=== PATIENT | female | born 1970 | race Asian ===

== ENCOUNTER 2022-02-07 15:59 | Emergency (ER) | payer BC, SELFPAY ==
[2022-02-07 16:06] VITALS: BP 103/60; PULSE 69; RESP 20; TEMP 36.6; O2SAT 96
--- NOTE | 2022-02-07 16:06 | ED.NAVMDI ---
HPI - Nausea/Vomiting/Diarrhea General Chief complaint: Nausea/Vomiting/Diarrhea Stated complaint: nausea diahrrea Time Seen by Provider: 02/07/22 16:06 Source: patient and RN notes reviewed History of Present Illness HPI Narrative: Patient is a 51-year-old female who presents the urgent care with complaints of nausea, vomiting and diarrhea. Patient states she is also had a lot of abdominal cramping intermittently. Patient's son is at the bedside and translating for her considering she has limited Uzbek. Patient is a kidney transplant patient and had her transplant in 2007 due to kidney failure after high blood pressure. Patient was seen at [facility] on February 02 and was given Zofran. She states that she did have a CT scan of the abdomen and they did not have any findings or cause for her nausea, vomiting or diarrhea. Patient son states that he had the same problem a couple weeks ago and it resolved fairly quickly with [id number] medication. Patient states she is concerned with taking [id number] medication due to her kidney transplant. Patient has not followed up with her kidney transplant doctor or her PCP regarding her current issue. Patient states her last episode of vomiting was Saturday when the symptoms started. States that she has intermittent abdominal cramping with diarrhea. Reports of 8 loose stools today. Denies of any blood in the urine. No other complaints. No acute distress noted. Patient aware of the plan of care. Some parts of this dictation were generated by voice recognition software and may contain typographical and/or grammatical inaccuracies. Related Data Home Medications Medication Instructions Recorded Confirmed metoprolol tartrate 25 mg tablet 25 mg PO BID 02/07/22 02/07/22 mycophenolate mofetil 500 mg tablet 500 mg PO DIRECTED 02/07/22 02/07/22 omeprazole 20 mg capsule,delayed 20 mg PO DAILY 02/07/22 02/07/22 release ondansetron 8 mg disintegrating 8 mg PO DIRECTED 02/07/22 02/07/22 tablet prednisone 5 mg tablet 5 mg PO DAILY 02/07/22 02/07/22 riboflavin (vitamin B2) 100 mg 1 tablet PO DAILY 02/07/22 02/07/22 tablet (Vitamin B-2) tacrolimus 1 mg capsule, 1 mg PO DAILY 02/07/22 02/07/22 immediate-release Allergies Allergy/AdvReac Type Severity Reaction Status Date / Time No Known Allergies Allergy Verified 02/07/22 16:12 Review of Systems Review of Systems: CONSTITUTIONAL: Denies fever, chills, or sweats. EYES: Denies visual changes, redness, or discharge. ENT: Denies rhinorrhea, congestion, sore throat, or otalgia. CARDIOVASCULAR: Denies chest pain, palpitations, or edema. RESPIRATORY: Denies cough or dyspnea. GASTROINTESTINAL: Reports of intermittent abdominal cramping with nausea, vomiting and diarrhea GENITOURINARY: Denies dysuria or hematuria. SKIN: Denies rash or itching. MUSCULOSKELETAL: Denies back pain, joint pain, or myalgia. NEUROLOGIC: Denies headache, numbness, or weakness. \ All other systems reviewed are negative, except as documented in HPI. PMFSH Comments At the time of my signature, I reviewed and agree with the nursing past medical, surgical, social, and family history. There is no relevant family history pertinent to the patient complaint. Exam Narrative: GENERAL: This is a well-nourished, well-developed patient, in no apparent distress. HEAD: normocephalic, atraumatic. EYES: PERRL. Sclera clear/white. Vision is grossly intact. EARS: External ears normal NOSE: External nose normal with no obvious nasal discharge, nares without redness, no rhinorrhea. THROAT: Mucous membranes moist NECK: Neck supple CARDIOVASCULAR: Regular rate and rhythm without murmurs, gallops, or rubs. RESPIRATORY: Clear to auscultation. Breath sounds equal bilaterally. No wheezes, rales, or rhonchi. GASTROINTESTINAL: Abdomen soft, mild to moderate substernal tenderness and upper right quadrant. Negative obturator. nondistended. Bowel sounds are hyperactive. SKIN
== END 2022-02-07 16:49 | disposition home or self-care (01) ==
PROVIDERS: Emergency Provider Nurse Practitioner Family; PCP Nurse Practitioner Family
DX: R11.2 Nausea with vomiting, unspecified (principal); R19.7 Diarrhea, unspecified; I10 Essential (primary) hypertension
CPT/HCPCS: 99211; G0463

== ENCOUNTER 2023-09-18 16:49 | Emergency (ER) | payer BC, SELFPAY ==
[2023-09-18 16:57] VITALS: BP 120/73; PULSE 72; RESP 16; TEMP 36.2; O2SAT 99
--- NOTE | 2023-09-18 17:05 | ED.GENADULT ---
HPI - General Adult General Chief complaint: Nausea/Vomiting/Diarrhea Stated complaint: diarrhea/nausea Source: patient, RN notes reviewed and old records reviewed Mode of arrival: ambulatory Limitations: no limitations History of Present Illness HPI narrative: 53-year-old female presents to [facility] with complaints of abdominal pain, nausea, diarrhea this started last p.m.. Patient states he has vomited 10 times today. Patient denies any other symptoms. Related Data Home Medications Medication Instructions Recorded Confirmed metoprolol tartrate 25 mg tablet 25 mg PO BID 02/07/22 09/18/23 mycophenolate mofetil 500 mg tablet 500 mg PO DIRECTED 02/07/22 09/18/23 omeprazole 20 mg capsule,delayed 20 mg PO DAILY 02/07/22 09/18/23 release prednisone 5 mg tablet 5 mg PO DAILY 02/07/22 09/18/23 riboflavin (vitamin B2) 100 mg 1 tablet PO DAILY 02/07/22 09/18/23 tablet (Vitamin B-2) tacrolimus 1 mg capsule, 1 mg PO DAILY 02/07/22 09/18/23 immediate-release Allergies Allergy/AdvReac Type Severity Reaction Status Date / Time No Known Allergies Allergy Verified 09/18/23 17:31 Review of Systems Constitutional: Constitutional: Reports no additional constitutional complaints, Denies body ache(s), Denies chills, Denies fatigue, Denies fever(s) and Denies headache(s) Eyes: Eyes: Reports no additional eye complaints and Denies blurry vision ENT: Reports system reviewed and no additional complaints, except as documented, Denies vertigo, Denies dizziness, Denies ear discharge, Denies otalgia, Denies facial pain, Denies headache(s), Denies nasal congestion, Denies nasal discharge, Denies sinus pain, Denies sinus pressure and Denies sore throat Cardiovascular: Cardiovascular: Reports no additional cardiovascular complaints, Denies chest pain, Denies chest pain at rest, Denies rapid heart rate and Denies dyspnea Respiratory: Respiratory: Reports no additional respiratory complaints, Denies chest congestion, Denies cough, Denies pain on inspiration, Denies pain with cough and Denies dyspnea Gastrointestinal: Gastrointestinal: Reports abdominal pain, Reports diarrhea, Reports nausea and Denies vomiting Integumentary/Breasts: Skin/Breast: Denies rash Neurologic: Reports system reviewed and no additional complaints, except as documented, Denies vertigo, Denies dizziness and Denies headache(s) Endocrine: Endocrine: Denies fatigue PMFSH Comments At the time of my signature, I reviewed and agree with the nursing past medical, surgical, social, and family history. There is no relevant family history pertinent to the patient complaint. Exam Const: General: cooperative, healthy appearing, no acute distress and well nourished Nutritional Appearance: well nourished Orientation/consciousness: patient oriented x3 Limitations: no limitations HENMT: Head: normal to inspection and normocephalic Ears: external ears normal, TM's normal bilaterally, mastoids normal and Abnormal EAC present Face/Nose/Sinus: normal facial exam Face and sinus: normal facial exam Mouth: Yes Normal oral and palatal mucosa present, Yes oropharynx normal and Yes moist mucous membranes Throat: tonsils normal, uvula midline and no uvular edema Eyes: General: appearance normal, both eyes and all related structures Sclera: sclerae normal Pupils: Equal, round and reactive pupils present Resp: Effort & Inspection: normal respiratory effort, able to speak in complete sentences, no audible wheezes, no cough, no respiratory distress and no retractions Auscultation: clear to auscultation bilaterally, no crackles, no rales, no rhonchi and no wheezes Cardio: Rate: regular rate Rhythm: regular rhythm GI: GI Palp: Yes abdominal tenderness, Yes Soft to palpation, No Firmness to palpation present (GI), No Tenderness to palpation present (GI), No Guarding due to palpation present (GI), No Rigid due to palpation and No No hepatosplenomegaly present Skin: General skin exam:
[2023-09-18] MEDS: ONDANSETRON HCL ODT 4 MG TABLET PO (17:27)
== END 2023-09-18 17:50 | disposition home or self-care (01) ==
PROVIDERS: Emergency Provider Registered Nurse; PCP Nurse Practitioner Family
DX: A08.4 Viral intestinal infection, unspecified (principal); Z20.822 Contact with and (suspected) exposure to COVID-19; I10 Essential (primary) hypertension
CPT/HCPCS: 87426; 87804; 99213; A9270; G0463

== ENCOUNTER 2024-07-08 18:16 | Emergency (ER) | payer BC, SELFPAY ==
[2024-07-08 18:21] VITALS: BP 95/54; PULSE 87; RESP 16; TEMP 36.6; O2SAT 98
[2024-07-08 18:40] LABS: EDUAAPPEAR Clear; EDUABILI Negative (Negative); EDUABLOOD 2+ (Negative); EDUACOLOR1 Bright; EDUAGLUCOSE Negative (Negative); EDUAKETONE Negative (Negative); EDUALEUKO 1+ (Negative); EDUANITRATE Negative (Negative); EDUAPROTEIN 2+ (Negative); EDUAUROBILI 0.2
--- NOTE | 2024-07-08 18:43 | ED.GENADULT ---
HPI - General Adult General Chief complaint: Abdominal Pain Stated complaint: Abdo pain/bloated/weak Time Seen by Provider: 07/08/24 18:44 Source: patient and RN notes reviewed Mode of arrival: ambulatory Limitations: no limitations History of Present Illness HPI narrative: 53-year-old female with history of kidney transplant presents with concern of for stomachache that started last night, abdominal discomfort, general malaise and nausea. Denies vomiting or diarrhea. She denies fever. She reports left flank pain. She denies dysuria, frequency, urgency, hematuria. MD complaint: Stomach ache Related Data Home Medications Medication Instructions Recorded Confirmed metoprolol tartrate 25 mg tablet 25 mg PO BID 02/07/22 09/18/23 mycophenolate mofetil 500 mg tablet 500 mg PO DIRECTED 02/07/22 09/18/23 omeprazole 20 mg capsule,delayed 20 mg PO DAILY 02/07/22 09/18/23 release prednisone 5 mg tablet 5 mg PO DAILY 02/07/22 09/18/23 tacrolimus 1 mg capsule, 2 mg PO BID 02/07/22 09/18/23 immediate-release losartan 25 mg tablet 25 mg PO DAILY 07/08/24 07/08/24 Allergies Allergy/AdvReac Type Severity Reaction Status Date / Time No Known Allergies Allergy Verified 09/18/23 17:31 Review of Systems Review of Systems: CONSTITUTIONAL: Denies malaise, chills, sweats, or fever. CARDIOVASCULAR: Denies chest pain, palpitations, or edema. RESPIRATORY: Denies cough or dyspnea. GASTROINTESTINAL: Reports abdominal discomfort, nausea. Denies vomiting, diarrhea GENITOURINARY: Denies dysuria, frequency, urgency, suprapubic pressure. Denies flank pain or hematuria. SKIN: Denies rash or itching. MUSCULOSKELETAL: Reports right flank pain All systems reviewed & are unremarkable except as noted in HPI and below PMFSH Comments At time of signature, agree with nursing past medical, surgical, social and family history. There is no relevant family history pertinent to the presenting complaint Exam Narrative: GENERAL: Well-appearing, well-nourished, and in no acute distress. HEAD: Normocephalic. EYES: PERRLA, conjunctivae clear. NECK: Supple. No lymphadenopathy CHEST: Clear to auscultation. No respiratory distress. HEART: Regular rate and rhythm. ABDOMEN: Soft, mid abdomen tenderness, nondistended, normal active bowel sounds, no palpable or pulsatile masses, no guarding. Right CVA tenderness SKIN: Warm, dry, no rash. NEURO: Alert and oriented x3. PSYCH: Normal mood and affect Course Course Emergency Course: My a advised patient of her limited diagnostic capability at [facility] and recommended she go to the emergency room for further evaluation. Patient an her son preferred an echo to the emergency room at this time. I will prescribe an antibiotic but advised to symptoms do not improved in 24-36 hours they need to go to the emergency room Anticipatory guidance given. Patient agrees to follow-up as directed and is aware of reasons to seek care at the emergency department. Portions of this record may have been created with voice recognition software Level of Care: [facility] Visit Vital Signs Vital signs: Vital Signs Temperature 97.8 F 07/08/24 18:21 Pulse Rate 87 07/08/24 18:21 Respiratory Rate 16 07/08/24 18:21 Blood Pressure 95/54 L 07/08/24 18:21 Pulse Oximetry 98 07/08/24 18:21 Oxygen Delivery Room Air 07/08/24 18:21 Temperature 97.8 F 07/08/24 18:21 Pulse Rate 87 07/08/24 18:21 Respiratory Rate 16 07/08/24 18:21 Blood Pressure 95/54 L 07/08/24 18:21 Pulse Oximetry 98 07/08/24 18:21 Oxygen Delivery Room Air 07/08/24 18:21 Reviewed. Medical Decision Making Differential Diagnosis Differential Diagnosis: Patient is nontoxic appearing and in no acute distress Vital Signs Vital Signs: Vital Signs Temperature 97.8 F 07/08/24 18:21 Pulse Rate 87 07/08/24 18:21 Respiratory Rate 16 07/08/24 18:21 Blood Pressure 95/54 L 07/08/24 18:21 Pulse Oximetry 98 07/08/24 18:21 Oxygen Delivery Room Air 07/08/24 18:21 Temperature 97.8 F 07/08/24 18:21 Pulse Rate 87 07/08/24 18:21 Respiratory Rate 16 07/08/24 18:21 Blood Pressure 95/54 L 07/08/24 18:21 Pulse Oximetry 98 07/08/24 18:21 Oxygen Delivery Room Air 07/08/24 18:21 Lab Data Labs: Lab Results 12/04/24 Range/Units 18:38 POC Urine Color Bright POC Urine Clarity Clear POC Urine pH 6.0 POC Ur Specif [place] 1.020 POC Urine Protein 2+ (Negative) POC Ur Glucose (UA) Negative (Negative) POC Urine Ketones Negative (Negative) POC Urine Blood 2+ (Negative) POC Urine Nitrite Negative (Negative) POC Urine Bilirubin Negative (Negative) POC Urine Urobilinogen 0.2 POC U Leukocyte Esteras 1+ (Negative) Critical Care Time Critical Care Time Critical Care Time: No Discharge Plan Discharge Clinical Impression: Urinary tract infection Patient Disposition: Home, Self-Care Condition: Stable Instructions: Antibiotic Form, Urinary Tract Infection in Women (ED) Additional Instructions: We will send a urine culture to the lab; if the culture identifies an organism that the prescribed antibiotic will not treat, you will receive a phone call from an urgent care staff member and an appropriate antibiotic will be prescribed. -Your symptoms should begin to improve within a day of starting antibiotics. But you should finish all the antibiotic pills you get. Otherwise your infection might come back. -Also recommend: increase water intake. Tylenol/ibuprofen as needed for pain or fever -Follow-up with your primary care provider for urine recheck. Seek ER visit if your symptoms do not improve or condition worsens with high fever, nausea, vomiting and severe back pain. Prescriptions: New amoxicillin-pot clavulanate 875-125 mg tablet 1 tablet PO Q12H 10 Days Qty: 20 0RF No Action prednisone 5 mg tablet 5 mg PO DAILY mycophenolate mofetil 500 mg tablet 500 mg PO DIRECTED omeprazole 20 mg capsule,delayed release(DR/EC) 20 mg PO DAILY tacrolimus 1 mg capsule 2 mg PO BID metoprolol tartrate 25 mg tablet 25 mg PO BID losartan 25 mg tablet 25 mg PO DAILY Follow-up/Referrals: Villa,Emmie Martin APN [Primary Care Provider] - Time of Disposition: 18:53
== END 2024-07-08 18:57 | disposition home or self-care (01) ==
PROVIDERS: Emergency Provider Nurse Practitioner; PCP Nurse Practitioner Family
DX: N39.0 Urinary tract infection, site not specified (principal); Z94.0 Kidney transplant status
CPT/HCPCS: 81003; 87086; 99213; G0463

== ENCOUNTER 2024-08-17 09:14 | Emergency (ER) | payer BC, SELFPAY ==
[2024-08-17 09:18] VITALS: BP 91/44; PULSE 106; RESP 20; TEMP 36.5; O2SAT 97
--- NOTE | 2024-08-17 09:30 | ED_ITS ---
HPI - Abdominal Pain General Chief Complaint: Fever Stated Complaint: fever/weak/can't keep food down/headache Time Seen by Provider: 08/17/24 09:30 Source: patient and RN notes reviewed Mode of arrival: ambulatory Limitations: no limitations History of Present Illness HPI narrative: 53-year-old female with hx kidney transplant (2007) presented for complaint of vomiting, fatigue/weakness, back pain, shortness of breath, and headache. Onset 2 days. Says she cannot keep food/fluids down. Also reports intermittent fever for over 3 weeks. Had a cough at the onset which is better. Denies abdominal pain, diarrhea, or urinary complaints. Related Data Home Medications ?Medication ?Instructions ?Recorded ?Confirmed ?Last Taken ?Type metoprolol tartrate 25 mg tablet 25 mg PO BID 02/07/22 09/18/23 Unknown History mycophenolate mofetil 500 mg tablet 500 mg PO DIRECTED 02/07/22 09/18/23 Unknown History omeprazole 20 mg capsule,delayed 20 mg PO DAILY 02/07/22 09/18/23 Unknown History release prednisone 5 mg tablet 5 mg PO DAILY 02/07/22 09/18/23 Unknown History tacrolimus 1 mg capsule, 2 mg PO BID 02/07/22 09/18/23 Unknown History immediate-release losartan 25 mg tablet 25 mg PO DAILY 07/08/24 07/08/24 Unknown History aspirin 81 mg capsule 81 mg PO DAILY 08/17/24 Unknown History Allergies Allergy/AdvReac Type Severity Reaction Status Date / Time No Known Allergies Allergy Verified 08/17/24 09:35 Review of Systems Review of Systems: ROS per HPI All systems reviewed & are unremarkable except as noted in HPI and below PMFSH Surgical History Surgical History (Updated 08/17/24 @ 09:46 by Corinna Rubio, [employer]) Renal transplant recipient Comments At time of signature, I have reviewed and agree with nursing past medical, surgical, social and family history unless otherwise noted. Please see nursing chart for further information. There is no relevant family history pertinent to the presenting complaint Exam Narrative: GENERAL: Well-appearing EYES: EOMI. Conjunctivae normal. ENT: Mucous membranes pink and moist. CHEST: No respiratory distress. Clear to auscultation. HEART: Regular rate and rhythm. No murmur appreciated. Normal peripheral pulses. ABDOMEN: abd soft, nondistended, hypoactive active bowel sounds. Generalized Tender abdomen, Bilateral CVA tenderness and upper back tenderness. No guarding, rebound tenderness, asymmetry SKIN: Warm, dry, no rash. Capillary refill normal. Normal skin turgor. NEURO: No focal deficits. Alert and oriented x3. PSYCH: Normal affect. Course Course Emergency Course: Patient is aware of diagnosis, understands and agrees to treatment plan. Anticipatory guidance given. Patient agrees to follow-up as directed and is aware of reasons to seek care at the emergency department. Portions of this record may have been created with voice recognition software Level of Care: Express Care Visit Vital Signs Vital signs: Vital Signs Temperature 97.7 F 08/17/24 09:18 Pulse Rate 106 H 08/17/24 09:18 Respiratory Rate 20 08/17/24 09:18 Blood Pressure 91/44 L 08/17/24 09:18 Pulse Oximetry 97 08/17/24 09:18 Oxygen Delivery Room Air 08/17/24 09:18 Temperature 97.7 F 08/17/24 09:18 Pulse Rate 106 H 08/17/24 09:18 Respiratory Rate 20 08/17/24 09:18 Blood Pressure 91/44 L 08/17/24 09:18 Pulse Oximetry 97 08/17/24 09:18 Oxygen Delivery Room Air 08/17/24 09:18 Transfer Transfered to: [facility] Transportation: Other ( Private vehicle) Transfer rationale: Pt is agreeable to transfer. Requests transfer to [facility] via private vehicle. Risks of transportation reviewed with pt including injury, worsening of condition and . v/u. DIL will be driving pt; Report called to hospital, spoke with Laci RN, Dr Aguilar, accepting physician. Pt is in stable condition at time of transfer. Advised to remain NPO and go directly to the hospital. MDM - Abdominal Pain MDM Narrative Medical decision making narrative: Pt is primarily Tunisian speaking, declined the use of director electrical engineering stating her DIL can help. Discussed physical exam findings, urine result, and neg flu/covid. Pt reporting intermittent fever, nausea/vomiting. Given hx kidney transplant Advised ER transfer, pt requests [facility]. Differential Diagnosis Differential diagnosis: Likely abdominal pain, acute appendicitis, constipation, diverticulitis, endometriosis, gastroenteritis and small bowel obstruction Lab Data Labs: Lab Results 08/17/24 08/17/24 Range/Units 09:40 10:03 POC Urine Color Beatriz POC Urine Clarity Cloudy POC Urine pH 5.5 POC Ur Specif [place] 1.025 POC Urine Protein 3+ (Negative) POC Ur Glucose (UA) Negative (Negative) POC Urine Ketones 1+ (Negative) POC Urine Blood 3+ (Negative) POC Urine Nitrite Negative (Negative) POC Urine Bilirubin 1+ (Negative) POC Urine Urobilinogen 0.2 POC U Leukocyte Esteras 1+ (Negative) POC Influenza A Ag Negative (Negative) POC Influenza B Ag Negative (Negative) POC SARS CoV-2 Ag Negative (Negative) Discharge Plan Discharge Clinical Impression: Vomiting Patient Disposition: Acute Care Hospital Condition: Stable Patient Language: Croatian Prescriptions: No Action aspirin 81 mg capsule 81 mg PO DAILY prednisone 5 mg tablet 5 mg PO DAILY mycophenolate mofetil 500 mg tablet 500 mg PO DIRECTED omeprazole 20 mg capsule,delayed release(DR/EC) 20 mg PO DAILY tacrolimus 1 mg capsule 2 mg PO BID metoprolol tartrate 25 mg tablet 25 mg PO BID losartan 25 mg tablet 25 mg PO DAILY Follow-up/Referrals: Villa,Emmie Martin APN [Primary Care Provider] - Time of Disposition: 10:23
[2024-08-17 10:00] LABS: EDCOVIDSCREEN Negative (Negative); EDINFLUASCREEN Negative (Negative); EDINFLUBSCREEN Negative (Negative)
[2024-08-17 10:14] LABS: EDUAAPPEAR Cloudy; EDUABILI 1+ (Negative); EDUABLOOD 3+ (Negative); EDUACOLOR1 Amber; EDUAGLUCOSE Negative (Negative); EDUAKETONE 1+ (Negative); EDUALEUKO 1+ (Negative); EDUANITRATE Negative (Negative); EDUAPH 5.5; EDUAPROTEIN 3+ (Negative); EDUASPGRAVITY 1.025; EDUAUROBILI 0.2
== END 2024-08-17 10:25 | disposition short-term general hospital (02) ==
PROVIDERS: Emergency Provider Nurse Practitioner Family; PCP Nurse Practitioner Family
DX: R11.10 Vomiting, unspecified (principal); Z20.822 Contact with and (suspected) exposure to COVID-19; Z94.0 Kidney transplant status
CPT/HCPCS: 81003; 87086; 87186; 87426; 87804; 99213; G0463